=== PATIENT | female | born 1970 | race Two or more races ===

== ENCOUNTER 2023-06-26 05:47 | Day surgery (SDC) | payer OTHER ==
[2023-06-26] MEDS ORDERED: CLINDAMYCIN PHOSPHATE 150 MG/ML (900mg) ONE (08:38)
[2023-06-26] MEDS ORDERED: CEFAZOLIN SODIUM 1,000 MG VIAL ONE (16:31)
[2023-06-26] MEDS ORDERED: POVIDONE-IODINE SCRUB 118 ML BOTT TOP ONE ×2 (16:32→17:45)
[2023-06-26] MEDS ORDERED: POVIDONE-IODINE 118 ML BOTT TOP ONE ×3 (16:32→17:45)
[2023-06-26] MEDS ORDERED: GENTAMICIN SULFATE 40 MG/ML VIAL ONE (16:38)
[2023-06-26] MEDS ORDERED: CLINDAMYCIN PHOSPHATE 150 MG/ML (900mg) IV ONE (17:45)
[2023-06-26] MEDS ORDERED: CEFAZOLIN SODIUM 1,000 MG VIAL IV ONE (17:45)
[2023-06-26] MEDS ORDERED: GENTAMICIN SULFATE 40 MG/ML VIAL IR ONE (17:45)
[2023-06-26] MEDS ORDERED: ENALAPRILAT DIHYDRATE 1.25 MG/ML VIAL IV ONE (18:10)
[2023-06-26] MEDS ORDERED: KETOROLAC TROMETHAMINE 60 MG VIAL IM ONE (18:56)
[2023-06-26] MEDS ORDERED: SUGAMMADEX SODIUM 200 MG/2 ML VIAL IV ONE ×2 (19:45)
[2023-06-29] MEDS ORDERED: KETOROLAC TROMETHAMINE 60 MG VIAL IM ONE (13:15)
[2023-06-29] MEDS ORDERED: ENALAPRILAT DIHYDRATE 1.25 MG/ML VIAL IV ONE (13:15)
== END 2023-06-26 22:00 | disposition home or self-care (01) ==
LOC: CIR.AMB 05:47
PROVIDERS: ATTEND Surgery
DX: C50.412 Malignant neoplasm of upper-outer quadrant of left female breast (principal); C77.3 Secondary and unspecified malignant neoplasm of axilla and upper limb lymph nodes; Z90.12 Acquired absence of left breast and nipple

== ENCOUNTER 2023-10-23 05:30 | Day surgery (SDC) | payer OTHER ==
[2023-10-20 09:32] LABS: URINE APPEARANCE Clear; URINE BILIRRUBIN Negative (NEGATIVE); URINE BLOOD Trace; URINE COLOR Yellow; URINE GLUCOSE Negative (NEGATIVE); URINE KETONE Negative (NEGATIVE); URINE LEUKOCYTE Small; URINE NITRATE Negative; URINE PROTEIN Negative (NEGATIVE); URINE UROBILINOGEN 0.2 E.U./dl
[2023-10-20 09:35] LABS: URINE BACTERIA 75.5 uL (0.0-1933); URINE RBC 6.4 uL (0.0-20.8); URINE WBC 30.4 uL (0.0-23.2)
[2023-10-20 09:39] LABS: HEMATOCRIT 38.3 % (36.0-45.00); HEMOGLOBIN 12.9 g/dL (12.0-15.00); MEAN CELL VOLUME 78.5 fL (80.00-100.00); MEAN CORPUSCULAR HEMOGLOBIN 26.4 pg (27.00-32.0); MEAN CORPUSCULAR HGB CONC 33.7 g/dl (32.0-36.0); PLATELET COUNT 336 K/uL (150-450); RED BLOOD COUNT 4.89 M/uL (4.00-6.00); RED CELL DISTRIBUTION WIDTH 15.1 % (11.5-14.5)
[2023-10-20 10:20] LABS: CREATININE SERUM 0.81 mg/dL (0.55-1.02); GFR 73.68; POTASSIUM 3.16 mEq/L (3.5-5.1)
[2023-10-20 10:30] LABS: PARTIAL THROMBOPLASTIN TIME 33.2 SECONDS (22.0-34.0); PROTHROMBIN TIME 10.5 SECONDS (9.0-11.5)
[~2023-10-23] VITALS: Ht 154.9 cm; Wt 68.0 kg
[~2023-10-23 05:30] MED LIST: AMLODIPINE BESYL5 MG PO; ANASTROZOLE1 MG PO; DIOVAN320 MG PO; TOPROL XL100 M1 PO
[2023-10-23] MEDS ORDERED: CLINDAMYCIN PHOSPHATE 150 MG/ML (900mg) ONE (08:15)
[2023-10-23] MEDS ORDERED: CEFAZOLIN SODIUM 1,000 MG VIAL ONE (09:59)
[2023-10-23] MEDS ORDERED: GENTAMICIN SULFATE 40 MG/ML VIAL ONE (09:59)
[2023-10-23] MEDS ORDERED: POVIDONE-IODINE SCRUB 118 ML BOTT TOP ONE ×2 (09:59→11:00)
[2023-10-23] MEDS ORDERED: POVIDONE-IODINE 118 ML BOTT TOP ONE ×2 (09:59→11:00)
[2023-10-23] MEDS ORDERED: CLINDAMYCIN PHOSPHATE 150 MG/ML (900mg) IV ONE (11:00)
[2023-10-23] MEDS ORDERED: CEFAZOLIN SODIUM 1,000 MG VIAL IJ ONE (11:00)
[2023-10-23] MEDS ORDERED: GENTAMICIN SULFATE 40 MG/ML VIAL IR ONE (11:00)
[2023-10-23] MEDS ORDERED: MORPHINE SULFATE 4 MG/ML VIAL IV PRN (11:45)
[2023-10-23] MEDS ORDERED: ONDANSETRON HCL 2 MG/ML VIAL IV PRN (11:45)
== END 2023-10-23 14:15 | disposition home or self-care (01) ==
LOC: CIR.AMB 05:30
PROVIDERS: ATTEND Plastic Surgery
DX: Z90.12 Acquired absence of left breast and nipple (principal); C50.412 Malignant neoplasm of upper-outer quadrant of left female breast; Z88.2 Allergy status to sulfonamides; I10 Essential (primary) hypertension; K21.9 Gastro-esophageal reflux disease without esophagitis
CPT/HCPCS: 19342; C1789